=== PATIENT | male | born 1960 | race Caucasian/White ===

== ENCOUNTER → 2018-01-29 13:45 | Outpatient (POV) | payer OTHER, SELFPAY | PROVIDERS: Visit Provider Nurse Practitioner Acute Care | DX: Z00.00 Encounter for general adult medical examination without abnormal findings (principal) ==

== ENCOUNTER → 2018-01-31 08:27 | Outpatient (CLI) | payer OTHER, SELFPAY ==
[2018-01-31 08:49] LABS: Basophils % 0.6 % (0.1-2.0); Eosinophils # 0.3 K/mm3 (0.0-0.4); Eosinophils % 4.9 % (0.1-12.0); Hematocrit 48.4 % (42.0-52.0); Hemoglobin 17.1 g/dL (14.1-18.0); Lymphocytes # 1.9 K/mm3 (0.7-4.5); Lymphocytes % 31.6 K/mm3 (10-50); Mean Corpuscular HGB Conc 35.3 g/dL (31.8-35.4); Mean Corpuscular Volume 87.7 fl (80-94); Mean Platelet Volume 6.6 fl (7.4-10.4); Monocytes # 0.3 K/mm3 (0.1-1.0); Monocytes % 5.6 % (1.7-9.3); Neutrophils # 3.5 K/mm3 (1.8-7.8); Neutrophils % 57.4 % (37.0-80.0); Platelet Count 265 K/mm3 (142-424); Red Blood Count 5.52 M/mm3 (4.60-6.20); Red Cell Distribution Width 12.6 % (11.5-17.5); White Blood Count 6.1 K/mm3 (4.8-10.8)
[2018-01-31 09:09] LABS: Alanine Aminotransferase 56 U/L (12-78); Albumin Level 4.4 gm/dL (3.4-5.0); Albumin/Globulin Ratio 1.4 (1.1-1.8); Alkaline Phosphatase 61 U/L (46-116); Anion Gap 11.5 mEq/L (5-15); Aspartate Amino Transferase 30 U/L (15-37); Bilirubin,Total 0.9 mg/dL (0.2-1.0); Blood Urea Nitrogen 23 mg/dL (7-18); Calcium 9.4 mg/dL (8.5-10.1); Carbon Dioxide 29 mmol/L (21.0-32.0); Chloride 104 mmol/L (98-107); Chol/HDL Ratio 3.6 (1-3.5); Cholesterol 179 mg/dL (140-200); Creatinine,Serum 0.99 mg/dL (0.70-1.30); Estimated Glomerular Filt Rate 78 ml/min (>60); GFR (African American) 95 ML/MIN (>60); Globulin 3.1 gm/dl (1.3-3.2); Glucose 123 mg/dL (74-106); HDL Cholesterol 50 mg/dL (27-67); LDL Cholesterol 117 mg/dL (0-130); Potassium 4.5 mmoL/L (3.5-5.1); Sodium 140 mmol/L (136-145); Total Protein,Serum 7.5 gm/dL (6.4-8.2); Triglycerides 60 mg/dL (30-200); VLDL Cholesterol 12 mg/dL (0-40)
[2018-01-31 09:52] LABS: Hemoglobin A1C 6.3 % (0.0-7.0)
== END ==
PROVIDERS: Visit Provider Internal Medicine Gastroenterology
DX: R94.5 Abnormal results of liver function studies (principal)
CPT/HCPCS: 36415; 80053; 80061; 83036; 85025

== ENCOUNTER → 2018-12-27 18:21 | Outpatient (CLI) | payer BC, SELFPAY ==
--- NOTE | 2018-12-27 18:43 | XR_ITS ---
EXAM: XR cervical spine 5V HISTORY: ITS.REASON: CERVICALGIA, TRAPEZIUS MUSCLE SPASM ORDERING PHYSICIAN: Remedios Rincon PATIENT AGE: 58 years COMPARISON: None FINDINGS: There is minimal anterolisthesis of C4 on C5 of 3 mm. There is mild degenerative disc disease at C4-C5 C5-C6 and C6-C7. No fracture or dislocation. No lytic or blastic change. Facet hypertrophic changes are present from C3 to C7 greater on the right. There is mild right foraminal narrowing at C3 C4 and C5-C6. There is mild left foraminal narrowing at C4-C5. IMPRESSION: Cervical spondylosis with degenerative disc disease along with facet arthrosis and foraminal narrowing as described above
== END ==
PROVIDERS: PCP Nurse Practitioner Family; Visit Provider Nurse Practitioner Family
DX: M54.2 Cervicalgia (principal); G89.29 Other chronic pain; M62.838 Other muscle spasm
CPT/HCPCS: 72050

== ENCOUNTER → 2019-04-30 17:22 | Outpatient (CLI) | payer BC, SELFPAY ==
--- NOTE | 2019-04-30 17:59 | XR_ITS ---
XR chest 2V HISTORY: ITS.REASON: CHEST PRESSURE ORDERING PHYSICIAN: Gildardo Rutherford MD PATIENT AGE: 58 years COMPARISON: None FINDINGS: The cardiomediastinal silhouette and pulmonary vascularity are within normal limits. The lungs are clear without infiltrates, suspicious nodules, or pleural effusions. No acute bony abnormalities. IMPRESSION: Negative chest, no acute finding
[2019-04-30 19:16] LABS: Basophils # 0.1 K/mm3 (0-0.2); Basophils % 0.7 % (0.1-2.0); Eosinophils # 0.1 K/mm3 (0.0-0.4); Eosinophils % 1.5 % (0.1-12.0); Hemoglobin 15.6 g/dL (14.1-18.0); Lymphocytes # 3.1 K/mm3 (0.7-4.5); Lymphocytes % 34.1 % (10-50); Mean Corpuscular HGB Conc 33.3 g/dL (31.8-35.4); Mean Corpuscular Hemoglobin 29.2 pg (27.0-31.2); Mean Corpuscular Volume 87.7 fl (80-94); Mean Platelet Volume 6.9 fl (7.4-10.4); Monocytes # 0.5 K/mm3 (0.1-1.0); Neutrophils # 5.3 K/mm3 (1.8-7.8); Neutrophils % 58.7 % (37.0-80.0); Platelet Count 314 K/mm3 (142-424); Red Blood Count 5.36 M/mm3 (4.60-6.20); Red Cell Distribution Width 13.3 % (11.5-17.5)
[2019-04-30 19:57] LABS: Alanine Aminotransferase 125 U/L (12-78); Albumin Level 4.1 gm/dL (3.4-5.0); Albumin/Globulin Ratio 1.5 (1.1-1.8); Alkaline Phosphatase 108 U/L (46-116); Anion Gap 14.9 mEq/L (5-15); Aspartate Amino Transferase 39 U/L (15-37); Bilirubin,Total 0.7 mg/dL (0.2-1.0); Blood Urea Nitrogen 23 mg/dL (7-18); CKMB Relative Index 1.3 U/L (0-4.0); Calcium 9.1 mg/dL (8.5-10.1); Carbon Dioxide 27 mmol/L (21.0-32.0); Chloride 103 mmol/L (98-107); Creatine Kinase 149 U/L (39-308); Creatinine,Serum 1.02 mg/dL (0.70-1.30); Estimated Glomerular Filt Rate 76 ml/min (>60); GFR (African American) 91 ML/MIN (>60); Globulin 2.8 gm/dl (1.3-3.2); Glucose 218 mg/dL (74-106); Magnesium 2.2 mg/dL (1.4-2.2); Potassium 3.9 mmoL/L (3.5-5.1); Sodium 141 mmol/L (136-145); Total Protein,Serum 6.9 gm/dL (6.4-8.2); Troponin I < 0.02 ng/ml (0.00-0.06)
[2019-04-30 20:07] LABS: Hemoglobin A1C 7.5 % (0.0-7.0)
== END ==
PROVIDERS: Visit Provider Internal Medicine Adolescent Medicine
DX: R07.89 Other chest pain (principal); E11.9 Type 2 diabetes mellitus without complications; Z79.84 Long term (current) use of oral hypoglycemic drugs; R06.09 Other forms of dyspnea
CPT/HCPCS: 36415; 71046; 80053; 82550; 82553; 83036; 83735; 84484; 85025; 93005

== ENCOUNTER → 2019-05-08 11:33 | Outpatient (CLI) | payer BC, SELFPAY ==
--- NOTE | 2019-05-08 11:41 | NM_ITS ---
CARDIOLITE SPECT MYOCARDIAL PERFUSION LEXISCAN, REST AND STRESS: History: Diabetes, hyperlipidemia, family history, shortness of breath. Procedure: Patient exercised on Simone protocol 8 minutes and 30 seconds, resting heart rate was 56 beats prominent resting blood pressure 126/81, with exercise maximum heart rate achieved was 1 47 bpm which is equal to 90% of the maximum predicted heart rate and a blood pressure was 148/80. Test was started due to shortness of breath. Patient has good exercise capacity achieved 10.1mets of workload on treadmill, the blood pressure response to exercise was adequate. Electrocardiogram: Resting electrocardiogram showed sinus rhythm right bundle branch block, with exercise there is less than 1.[address] segment depression noted from the baseline. The EKG portion of the exercise Myoview is negative for ischemia. Cardiac stress and resting SPECT images: Cardiac stress and resting SPECT images were obtained using technetium 99 Myoview 31.5 mCi at stress and 10.1 mCi at rest. Gated SPECT further analysis of segmental wall motion and calculation of the ejection fraction also done. Cardiac stress and resting SPECT images show uniform myocardial activity without segmental perfusion abnormality, computer derived ejection fraction is 63% with no regional wall motion abnormality, right ventricle is normal size and contractility. Conclusion: 1. The EKG portion of the exercise Myoview is negative for ischemia, patient has good exercise capacity achieved 10.1mets of workload on treadmill, the blood pressure response to exercise was adequate, test was started shortness of breath. 2. No scintigraphic evidence of reversible ischemia seen at this level of exercise, computer derived ejection fraction is 63% with no regional wall motion abnormality, right ventricle is normal size and contractility. 3. Normal exercise Myoview study.
--- NOTE | 2019-05-08 13:35 | HMH.ITSHM ---
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 []janumet levocetirizine fomotidine rasuvastatin maloxicam proglitozone zyrtec vit e aspirin
== END ==
PROVIDERS: PCP Internal Medicine Adolescent Medicine; Visit Provider Internal Medicine Adolescent Medicine
DX: R07.89 Other chest pain (principal); R06.09 Other forms of dyspnea
CPT/HCPCS: 78452; 93017; A9502

== ENCOUNTER → 2019-05-13 09:56 | Outpatient (POV) | payer BC, SELFPAY ==
[2019-05-13 10:01] VITALS: BP 131/88; PULSE 71; RESP 18; O2SAT 98; BMI 26.9
--- NOTE | 2019-05-13 10:28 | HMH.PMCON ---
Assessment and Plan (1) Cervical neck pain with evidence of disc disease Current visit: Yes Status: Acute Category: Medical Code(s): M50.90 - Cervical disc disorder, unspecified, unspecified cervical region - Assessment and plan all Dx Assessment and Plan for all problems:: The patient is doing well with dry needling. He would like to continue this therapy at this time. Patient would like to call the office if he begins to have worsening pain and dry needling is not working for him. He has been instructed to call the office if he has any concerns. He will also continue a home stretching program, along with NSAIDs. Dr. Thayer has reviewed this note and agrees with this plan of care. This note was dictated using voice recognition software and make contain errors or omissions. HPI - Data of Consult Patient: new to practice Consult date: 05/13/19 Requesting Physician: Cris Antonio APRN Primary Care Provider: Gildardo Rutherford MD - Consult Narrative Reason for consult: Neck pain History of present illness: Mr. Sue is a 58 year old male who presents today for referral from Dr. Arora. Patient complains of neck pain radiating to head and right shoulder. He states that the pain presented in December of this year, with an acute onset. He says that he woke one morning with a stiff neck, and it has never gone away . He rates his pain a 3 out of 10 today. The patient tried anti-inflammatories that was prescribed per Dr. Rutherford, which gave him some relief. He was then consulted to Dr. Arora who sent him for PT OT. He says that he has started doing dry needling and has had 2 sessions. He has had great relief from dry needling. He would like to continue this therapy, with the possibility of epidural injections in the future if dry needling no longer works. She is also continuing home stretching program and NSAIDs prescribed per Dr. Rutherford CC: Cris Antonio APRN [facility] History I have reviewed the patient's past medical history: Yes Medical History: Reports:: Diabetes Mellitus Type 2 Denies:: Diabetes Mellitus Type 1, Internal Pacemaker, Lung Disease, Seizures *Have you ever received a pneumonia vaccine?: No *Have you received a flu vaccine this season?: No Laterality Cases: Bilateral: Total Knee Replacement Other Surgeries: Yes: Appendectomy, Colonoscopy. No: Pacemaker Amputation: No Fractures: No - *Social History Smoking Status: Never smoker Alcohol Intake: never *Occupational Status:: other Housing: house *Travel in the last 8 weeks: None Family Hx:: Non-contributory Review of Systems - Review of Systems Review of Systems General: No recent weight changes, no fever, no sleep disturbances Respiratory: No cough, no shortness of air, no recurring pulmonary infections Cardiovascular/peripheral vascular: No chest pain, no palpitations, no edema, no shortness of breath Gastrointestinal: No new onset incontinence, normal bowel movements reported Genitourinary: No new onset incontinence Musculoskeletal: Neck pain, right shoulder pain Psychiatric: Normal mood/affect Neurological: [Denies weakness in extremities], [denies balance issues] Meds Home Medications Medication Instructions Recorded Confirmed Type Aspirin [Aspir 81] 81 mg PO DAILY 04/13/18 04/16/18 History Famotidine [Acid Controller] 20 mg PO DAILY 04/13/18 04/16/18 History Sitagliptin Phos/Metformin HCl 1 each PO DAILY 04/13/18 04/16/18 History [Janumet 50-1,000 mg Tablet] Meloxicam 7.5 mg PO DAILY 05/13/19 05/13/19 History Pioglitazone HCl 45 mg PO DAILY 05/13/19 05/13/19 History Allergies Allergy/AdvReac Type Severity Reaction Status Date / Time codeine AdvReac Intermediate Nausea Verified 05/08/19 13:35 Objective Vital signs: Pulse Resp BP Pulse Ox 71 18 131/88 98 05/13/19 10:01 05/13/19 10:01 05/13/19 10:01 05/13/19 10:01 Narrative: Physical exam General: Alert and oriented x3, n
--- NOTE | 2019-05-13 10:31 | P.CONS_ITS ---
Assessment and Plan (1) Cervical neck pain with evidence of disc disease Current visit: Yes Status: Acute Category: Medical Code(s): M50.90 - Cervical disc disorder, unspecified, unspecified cervical region - Assessment and plan all Dx Assessment and Plan for all problems:: The patient is doing well with dry needling. He would like to continue this therapy at this time. Patient would like to call the office if he begins to have worsening pain and dry needling is not working for him. He has been instructed to call the office if he has any concerns. He will also continue a home stretching program, along with NSAIDs. Dr. Thayer has reviewed this note and agrees with this plan of care. This note was dictated using voice recognition software and make contain errors or omissions. HPI - Data of Consult Patient: new to practice Consult date: 05/13/19 Requesting Physician: Cris Antonio APRN Primary Care Provider: Gildardo Rutherford MD - Consult Narrative Reason for consult: Neck pain History of present illness: Mr. Sue is a 58 year old male who presents today for referral from Dr. Arora. Patient complains of neck pain radiating to head and right shoulder. He states that the pain presented in December of this year, with an acute onset. He says that he woke one morning with a stiff neck, and it has never gone away . He rates his pain a 3 out of 10 today. The patient tried anti- inflammatories that was prescribed per Dr. Rutherford, which gave him some relief. He was then consulted to Dr. Arora who sent him for PT OT. He says that he has started doing dry needling and has had 2 sessions. He has had great relief from dry needling. He would like to continue this therapy, with the possibility of epidural injections in the future if dry needling no longer works. She is also continuing home stretching program and NSAIDs prescribed per Dr. Rutherford CC: Cris Antonio APRN [facility] History I have reviewed the patient's past medical history: Yes Medical History: Reports:: Diabetes Mellitus Type 2 Denies:: Diabetes Mellitus Type 1, Internal Pacemaker, Lung Disease, Seizures *Have you ever received a pneumonia vaccine?: No *Have you received a flu vaccine this season?: No Laterality Cases: Bilateral: Total Knee Replacement Other Surgeries: Yes: Appendectomy, Colonoscopy. No: Pacemaker Amputation: No Fractures: No - *Social History Smoking Status: Never smoker Alcohol Intake: never *Occupational Status:: other Housing: house *Travel in the last 8 weeks: None Family Hx:: Non-contributory Review of Systems - Review of Systems Review of Systems General: No recent weight changes, no fever, no sleep disturbances Respiratory: No cough, no shortness of air, no recurring pulmonary infections Cardiovascular/peripheral vascular: No chest pain, no palpitations, no edema, no shortness of breath Gastrointestinal: No new onset incontinence, normal bowel movements reported Genitourinary: No new onset incontinence Musculoskeletal: Neck pain, right shoulder pain Psychiatric: Normal mood/affect Neurological: [Denies weakness in extremities], [denies balance issues] Meds Home Medications Medication Instructions Recorded Confirmed Type Aspirin [Aspir 81] 81 mg PO DAILY 04/13/18 04/16/18 History Famotidine [Acid Controller] 20 mg PO DAILY 04/13/18 04/16/18 History Sitagliptin Phos/Metformin HCl 1 each PO DAILY 04/13/18 04/16/18 History [Janumet 50-1,000 mg Tablet] Meloxica
== END ==
PROVIDERS: PCP Internal Medicine Adolescent Medicine; Visit Provider Clinical Nurse Specialist Family Health
DX: M50.30 Other cervical disc degeneration, unspecified cervical region (principal)
CPT/HCPCS: 99202

== ENCOUNTER 2019-05-29 17:00 | Outpatient (RCR) | payer BC, SELFPAY | END 2019-06-05 10:54 | disposition home or self-care (01) | LOC: PT.CARL 17:00 | PROVIDERS: Visit Provider Neurological Surgery | DX: M54.2 Cervicalgia (principal) | CPT/HCPCS: 97010; 97012; 97014; 97035; 97110; 97140; 97163; G0283 ==

== ENCOUNTER → 2020-09-21 17:07 | Outpatient (CLI) | payer BC, SELFPAY ==
[2020-09-23 10:48] LABS: PSA, Free 1.37 ng/mL; Prostate Specific Ag 6.5 ng/mL (0.0-4.0)
== END ==
PROVIDERS: Visit Provider Urology
DX: R97.20 Elevated prostate specific antigen [PSA] (principal)
CPT/HCPCS: 36415; 84153; 84154

== ENCOUNTER → 2021-02-06 15:42 | Outpatient (CLI) | payer BC, SELFPAY ==
--- NOTE | 2021-02-06 15:57 | XR_ITS ---
PROCEDURE: XR SHOULDER RT MIN 2V CLINICAL INDICATION: RIGHT ANTERIOR SHOULDER PAIN COMPARISON: No exams were available for comparison FINDINGS: The clavicle is intact. There is minor degenerate change of the AC joint with minor spurring superiorly and inferiorly. There is no subacromial stenosis. There is node change in the subacromial space on the images obtained with weights versus without weights. The humeral head and glenoid appear normal. There no soft tissue calcifications. IMPRESSION: Mild degenerate change of the AC joint, no acute fracture or soft tissue abnormality noted Dictated by: Dr. Juan José Keating MD 02/06/2021 18:55 Dr. Juan José Keating MD in [place] 02/06/2021 18:55
== END ==
PROVIDERS: PCP Internal Medicine Adolescent Medicine; Visit Provider Internal Medicine Adolescent Medicine
DX: M25.511 Pain in right shoulder (principal)
CPT/HCPCS: 73030

== ENCOUNTER 2021-03-18 11:52 | Outpatient (CLI) | payer BC, SELFPAY ==
[2021-03-18] VITALS (8 sets, daily range): BP systolic 103–110; BP diastolic 63–77; PULSE 79–89; RESP 15–20; TEMP 37.2–37.3; O2SAT 93–96
== END 2021-03-18 14:56 | disposition home or self-care (01) ==
PROVIDERS: PCP Internal Medicine Adolescent Medicine; Visit Provider Internal Medicine Adolescent Medicine
DX: U07.1 COVID-19 (principal)
CPT/HCPCS: 96365

== ENCOUNTER → 2021-10-03 14:30 | Outpatient (CLI) | payer BC, SELFPAY ==
[2021-10-05 11:12] LABS: Prostate Specific Ag 17.3 ng/mL (0.0-4.0)
== END ==
PROVIDERS: PCP Internal Medicine Adolescent Medicine; Visit Provider Urology
DX: R97.20 Elevated prostate specific antigen [PSA] (principal)
CPT/HCPCS: 36415; 84153; 84154

== ENCOUNTER → 2021-11-16 09:51 | Outpatient (CLI) | payer BC, SELFPAY ==
[2021-11-17 08:37] LABS: PSA, Free 3.79 ng/mL; Prostate Specific Ag 20.9 ng/mL (0.0-4.0)
== END ==
PROVIDERS: Visit Provider Urology
DX: R97.20 Elevated prostate specific antigen [PSA] (principal)
CPT/HCPCS: 36415; 84153; 84154

== ENCOUNTER → 2021-11-27 14:13 | Outpatient (CLI) | payer BC, SELFPAY ==
[2021-11-27 15:14] LABS: MANUAL DIFFERENTIAL MANUAL DIFFERENTIAL (MANUAL DIFF)
[2021-11-27 15:28] LABS: Basophils # 0.2 K/mm3 (0-0.2); Eosinophils # 0.2 K/mm3 (0.0-0.4); Eosinophils % 2.7 % (0.1-12.0); Hematocrit 49.3 % (42.0-52.0); Hemoglobin 16.3 g/dL (14.1-18.0); Lymphocytes # 3.1 K/mm3 (0.7-4.5); Lymphocytes % 41.8 % (10-50); Mean Corpuscular HGB Conc 33.1 g/dL (31.8-35.4); Mean Corpuscular Hemoglobin 30.6 pg (27.0-31.2); Mean Corpuscular Volume 92.4 fl (80-94); Mean Platelet Volume 7.5 fl (7.4-10.4); Monocytes # 0.3 K/mm3 (0.1-1.0); Monocytes % 4.3 % (1.7-9.3); Neutrophils # 3.6 K/mm3 (1.8-7.8); Neutrophils % 49.2 % (37.0-80.0); Platelet Count 237 K/mm3 (142-424); Red Blood Count 5.33 M/mm3 (4.60-6.20); Red Cell Distribution Width 13.8 % (11.5-17.5); White Blood Count 7.4 K/mm3 (4.8-10.8)
[2021-11-27 15:32] LABS: Chloride 106 mmol/L (98-107); Potassium 3.9 mmoL/L (3.5-5.1); Sodium 143 mmol/L (136-145)
[2021-11-27 15:35] LABS: Anion Gap 14.9 mEq/L (5-15); Blood Urea Nitrogen 23 mg/dl (9-20); Calcium 9.9 mg/dl (8.4-10.2); Carbon Dioxide 26 mmol/L (22.0-30.0); Estimated Glomerular Filt Rate 76 ml/min (>60); GFR (African American) 93 ML/MIN (>60); Glucose 190 mg/dl (74-100)
[2021-11-27 17:39] LABS: Eosinophils % 2 % (0-3); Lymphocytes % 44 % (10-50); Monocytes % 12 % (2-9); Neutrophils % 40 % (42-76); Platelet Estimate Normal; Total Cells Counted 100
== END ==
PROVIDERS: PCP Internal Medicine Adolescent Medicine; Visit Provider Urology
DX: Z01.812 Encounter for preprocedural laboratory examination (principal); Z11.52 Encounter for screening for COVID-19; R97.20 Elevated prostate specific antigen [PSA]
CPT/HCPCS: 36415; 80048; 85007; 85014; 85018; 85048; 85049; C9803; U0003; U0005

== ENCOUNTER 2021-11-29 06:54 | Day surgery (SDC) | payer BC, SELFPAY ==
[2021-11-25 10:59] VITALS: BMI 26.2
[2021-11-29 07:17] VITALS: BP 140/89; PULSE 105; RESP 18; TEMP 37; O2SAT 96
--- NOTE | 2021-11-29 09:18 | P.PN_ITS ---
[facility] Anesthesia Checklist - Patient Identification Patient Identification: Arm Band - Structural Data Admitted From: Home Planned Operative Procedure/s: Prostate Biopsy Consent for Planned Operative Procedure(s) Verified: Yes Verified Documents: Surgical Consent, History and Physical - NPO Status Verified Time NPO: 00:00 - Additional verifications Anesthesia Reactions: No Hx Blood Transfusions: No Blood Transfusion Reaction: No - Airway Assessment C-Spine Mobility Assessed: Yes (mp2) TMJ Mobility Assessed: Yes Dentition: Good Dentition - Neurological Assessment Level of Consciousness: Awake, Alert - Anesthesia Plan Anesthesia Risk discussed: Yes Anesthesia Plan: Verified ASA Class: III Anesthesia Type: MAC [facility] History I have reviewed the patient's past medical history: Yes Medical History: Reports:: BPH, Diabetes Mellitus Type 2, Seizures Denies:: Cancer, Diabetes Mellitus Type 1, Internal Pacemaker, Lung Disease, MRSA *Have you ever received a pneumonia vaccine?: No *Have you received a flu vaccine this season?: Yes Other Medical History: Denies: Blood Transfusion Reaction Anesthesia experience/problems:: nac Laterality Cases: Bilateral: Arthroscopy Knee, Total Knee Replacement Other Surgeries: Yes: Appendectomy, Colonoscopy. No: Pacemaker Amputation: No Fractures: No - *Social History Last grade of school completed: GED Smoking Status: Never smoker Alcohol Intake: never Substance Use Type: denies use *Occupational Status:: employed Housing: house Household Members: spouse *Travel in the last 8 weeks: None Family Hx:: No significant family history
[2021-11-29 09:33] VITALS: BP 85/50; PULSE 75; RESP 16; TEMP 36.2; O2SAT 93
[2021-11-29 10:03] VITALS: BP 87/55; PULSE 72; RESP 16; TEMP 36.2; O2SAT 97
[2021-11-29 10:15] VITALS: BP 113/70; PULSE 78; RESP 18; O2SAT 96
[2021-11-29 10:16] VITALS: BP 83/51; PULSE 74; RESP 18; TEMP 36.2; O2SAT 93
--- NOTE | 2021-11-29 12:10 | HMH.OPNOTE ---
Date of procedure: 11/29/21 Pre-op Diagnosis:: Elevated PSA Post-op Diagnosis:: Elevated PSA Procedure performed:: Prostate biopsy with transrectal ultrasound Surgeon:: Jan Ledezma MD DIVISION ORDER ANALYST:: Michael Crowe Anesthesia: MAC Estimated blood loss (mL): 0 Clinical Note:: 61-year-old white male with recent PSA of 20. He presents for his first prostate biopsy. Operative findings:: Prostate was measured at 37.9 cm?. There was no evidence of hypoechoic or hyperechoic lesions or calcifications. Operative note:: Patient taken to the operating suite after informed consent was obtained. Monitored anesthesia care was administered and patient placed into the left lateral decubitus position. Transrectal ultrasound probe was placed into the rectum without difficulty and the prostate was easily visualized. The prostate was measured at 37.9 cm?. There is no evidence of hypoechoic or hyperechoic lesions. No calcifications were noted. Local anesthetic was placed into each neurovascular bundle and 12 biopsies were then taken in a systematic fashion. The ultrasound probe removed. The patient tolerated the procedure well there were no complications Condition: stable Disposition: same day Specimens:: Prostate biopsies x12 Complications:: None
[2022-08-11 10:56] LABS: POC Glucose,Bedside 198 (70-110)
== END 2021-11-29 10:15 ==
LOC: OR 06:54
PROVIDERS: PCP Internal Medicine Adolescent Medicine; Visit Provider Urology
PROC: (CPT 55700; principal; 2021-11-29 09:00)
DX: C61 Malignant neoplasm of prostate (principal); E11.9 Type 2 diabetes mellitus without complications; R56.9 Unspecified convulsions; Z88.6 Allergy status to analgesic agent; Z79.82 Long term (current) use of aspirin; Z79.899 Other long term (current) drug therapy
CPT/HCPCS: 55700; 82962

== ENCOUNTER → 2021-12-06 07:36 | Outpatient (CLI) | payer BC, SELFPAY ==
--- NOTE | 2021-12-06 07:36 | CT_ITS ---
FINAL REPORT TECHNIQUE: Axial images through the abdomen and pelvis were performed without intravenous contrast. Oral contrast was administered. This study was performed with techniques to keep radiation doses as low as reasonably achievable, (ALARA). Individualized dose reduction techniques using automated exposure control or adjustment of mA and/or kV according to the patient's size were employed. CLINICAL HISTORY: prostate cancer- dx last week. FINDINGS: ABDOMEN: The lung bases are clear. The heart size is normal. Limited images of the liver are unremarkable. There are gallstones seen in the gallbladder. The spleen is normal. No adrenal mass is identified. The aorta is normal in caliber. There is no significant free fluid or adenopathy. There is no nephrolithiasis. There is no hydronephrosis. There is a large amount of stool throughout the colon. PELVIS: The appendix is not identified and appears to be surgically absent. The urinary bladder is unremarkable. There is no significant free fluid or adenopathy. There are advanced hypertrophic changes of degenerative disc disease in the lower lumbar spine. IMPRESSION: Cholelithiasis without evidence of cholecystitis. Constipation without evidence of obstruction. Reviewed, Interpreted and Dictated by Moiz Hodges MD Transcribed by Tiffanie Wood Authenticated by Moiz Hodges MD on 12/06/2021 09:57:47 AM [facility]
== END ==
PROVIDERS: PCP Internal Medicine Adolescent Medicine; Visit Provider Urology
DX: C61 Malignant neoplasm of prostate (principal)
CPT/HCPCS: 74176

== ENCOUNTER → 2021-12-10 08:43 | Outpatient (CLI) | payer BC, SELFPAY ==
--- NOTE | 2021-12-10 08:43 | NM_ITS ---
FINAL REPORT CLINICAL HISTORY: prostate cancer..no pain 8:50 am 26.7 mci tc MDP injected into lt ant FINDINGS: EXISTING RELEVANT IMAGING STUDIES: CT abdomen and pelvis dated December 06, 2021 TECHNIQUE: The patient was injected with 26.7 mCi of technetium 99-[id number]. 3 hour delayed images were obtained. FINDINGS: There is normal distribution of the radiopharmaceutical. No abnormal tracer activity is identified to suggest occult fracture or metastatic disease. IMPRESSION: No findings to indicate metastatic bone disease. Reviewed, Interpreted and Dictated by Moiz Hodges MD Transcribed by Kavon Matute Authenticated by Moiz Hodges MD on 12/10/2021 02:50:57 PM [facility]
== END ==
LOC: RAD 08:43
PROVIDERS: PCP Internal Medicine Adolescent Medicine; Visit Provider Urology
DX: C61 Malignant neoplasm of prostate (principal)
CPT/HCPCS: 78306; A9503

== ENCOUNTER → 2022-01-21 09:00 | Outpatient (CLI) | payer BC, SELFPAY | PROVIDERS: Visit Provider Urology | DX: Z01.812 Encounter for preprocedural laboratory examination (principal); Z11.52 Encounter for screening for COVID-19; C61 Malignant neoplasm of prostate | CPT/HCPCS: C9803; U0003; U0005 ==

== ENCOUNTER 2022-01-24 07:31 | Day surgery (SDC) | payer BC, SELFPAY ==
[2022-01-20 09:53] VITALS: BMI 27.5
--- NOTE | 2022-01-24 08:03 | P.PN_ITS ---
[facility] Anesthesia Checklist - Patient Identification Patient Identification: Arm Band - Structural Data Admitted From: Home Planned Operative Procedure/s: Transrectal U/S with gold seed placement Consent for Planned Operative Procedure(s) Verified: Yes - NPO Status Verified Time NPO: 00:00 - Additional verifications Anesthesia Reactions: No Hx Blood Transfusions: No Blood Transfusion Reaction: No - Airway Assessment C-Spine Mobility Assessed: Yes TMJ Mobility Assessed: Yes Dentition: Good Dentition - Neurological Assessment Level of Consciousness: Awake Hx Seizures: No Numbness or tingling in extremities: No - Anesthesia Plan Anesthesia Risk discussed: Yes Anesthesia Plan: Verified ASA Class: II Anesthesia Type: MAC [facility] History I have reviewed the patient's past medical history: Yes Medical History: Reports:: BPH, Cancer (prostate), Diabetes Mellitus Type 2, Seizures Denies:: Diabetes Mellitus Type 1, Internal Pacemaker, Lung Disease, MRSA *Have you ever received a pneumonia vaccine?: No *Have you received a flu vaccine this season?: Yes Other Medical History: Reports: Chemotherapy, Radiation Therapy. Denies: Blood Transfusion Reaction Anesthesia experience/problems:: None Laterality Cases: Bilateral: Arthroscopy Knee, Total Knee Replacement Other Surgeries: Yes: No Previous Surgery, Appendectomy, Cancer Surgery, Colonoscopy. No: Pacemaker Amputation: No Fractures: No - *Social History Last grade of school completed: High school graduate Smoking Status: Never smoker Alcohol Intake: never Substance Use Type: denies use *Occupational Status:: employed Housing: house Household Members: spouse *Travel in the last 8 weeks: None Family Hx:: No significant family history
[2022-01-24 09:07] VITALS: BP 139/90; PULSE 95; RESP 18; TEMP 37; O2SAT 100
[2022-01-24 11:08] VITALS: BP 104/70; PULSE 78; RESP 18; TEMP 36.3; O2SAT 91
[2022-01-24 11:18] VITALS: BP 111/74; PULSE 78; RESP 18; O2SAT 93
--- NOTE | 2022-01-24 11:19 | HMH.OPNOTE ---
Date of procedure: 01/24/22 Pre-op Diagnosis:: Prostate cancer Post-op Diagnosis:: Prostate cancer Procedure performed:: Placement of gold fiducial markers with transrectal ultrasound guidance Surgeon:: Jan Ledezma MD SALES AND MERCHANDISING REPRESENTATIVE:: Leana Cast Anesthesia: MAC Estimated blood loss (mL): 0 Clinical Note:: 61-year-old white male with recently diagnosed high-grade prostate cancer presents for placement of gold fiducial markers into the prostate for radiation therapy of the prostate. Operative findings:: Prostate easily visualized and markers placed without difficulty. Operative note:: Patient taken to the operating suite on the stretcher. Monitored anesthesia care was administered. He was placed into the left lateral decubitus position and the transrectal ultrasound probe placed into the rectum. The prostate was easily visualized and had been measured during previous biopsy. Local anesthetic was placed into each neurovascular bundle and 4 markers were then placed. One at the right lateral base, 1 at the right lateral apex, 1 at the left lateral base and one at the left lateral apex. There was good visualization of the markers after placement. The probe removed. The patient tolerated procedure well. Condition: stable Disposition: same day Specimens:: None Complications:: None
[2022-01-24 11:28] VITALS: BP 121/66; PULSE 85; RESP 18; O2SAT 95
[2022-01-24 11:37] VITALS: BP 146/84; PULSE 74; RESP 18; O2SAT 97
[2022-08-11 10:57] LABS: POC Glucose,Bedside 211 (70-110)
== END 2022-01-24 11:40 | disposition home or self-care (01) ==
LOC: OUTP 07:33
PROVIDERS: PCP Internal Medicine Adolescent Medicine; Visit Provider Urology
PROC: (CPT 55876; principal; 2022-01-24 09:30)
DX: C61 Malignant neoplasm of prostate (principal); E11.9 Type 2 diabetes mellitus without complications; Z88.6 Allergy status to analgesic agent; Z79.82 Long term (current) use of aspirin; Z79.899 Other long term (current) drug therapy
CPT/HCPCS: 55876; 76942; A4648; 82962

== ENCOUNTER → 2022-07-12 10:35 | Outpatient (CLI) | payer BC, SELFPAY ==
[2022-07-12 13:07] LABS: Prostate Specific Ag, Diagnost 0.105 ng/ml (0.0-4.0)
== END ==
PROVIDERS: PCP Internal Medicine Adolescent Medicine; Visit Provider Urology
DX: C61 Malignant neoplasm of prostate (principal)
CPT/HCPCS: 36415; 84153

== ENCOUNTER → 2023-05-25 10:47 | Outpatient (CLI) | payer BC, SELFPAY ==
--- NOTE | 2023-05-25 | CA_ITS ---
APPROVED REPORT Exam: Exercise Treadmill Technologist: Chata Lott, Ht: 6 ft 3 in Wt: 210 lbs BSA: 2.24 m2 HR: 73 bpm BP: 133/85 mmHg Rhythm: NSR Medical History Medications: Aspirin,,,,, Cephalexin,,,,, Pioglitazone,,,,, MeLOXICAM,,,,, Famotidine,,,,, LoraTADINE,,,,, Janumet,,,,, Levofloxacin,,,,, Stress Test Details Test: Manual Treadmill HR Resting HR: 95 bpm Max Heart Rate (APMHR): 160 bpm Max HR Achieved: 139 bpm Target HR (85% APMHR): 136 bpm % of APMHR: 87 Recovery HR: 98 bpm HR response to stress: Normal HR response to stress BP Resting BP: 120.0/86 mmHg Max BP: 154/84 mmHg Recovery BP: 129.0/82.0 mmHg BP response to stress: Normal blood pressure response to stress. ECG Resting ECG: NSR, RBBB, marked left axis deviation, poor R wave progression Stress ECG: No change Arrhythmia: Occasional PVCs Recovery ECG: No change Recovery Arrhythmia: None Clinical Exercise duration: 07:00 min Highest Stage Achieved: III Exercise capacity: 9.0 METs Overall Exercise Capacity for Age: Average Stress ECG Conclusion THe patient walked 7:00 on Simone Protocol (speed decreased to 3mph the last 50 secs). He achieved a total of 9 METs, exhibiting average exercise capacity compared to age and sex matched peers. He has a normal HR and BP response to exercise. Max HR: 139 % of PM: 87% Max BP: 154/84 METs: 9.0 Test stopped due to: SOA, leg fatigue. Symptoms: No CP. Arrhythmias/Ectopy: Occ PVC. Baseline ECG showed normal sinus rhythm, right bundle branch block, left axis deviation, and delayed R/S transition. At peak stress, there were no ST changes. Conclusion: No evidence of ischemia on exercise stress test. Myoview images are reported separately. Test Summary REST . . . . . . . Sitting REST . . . . . . . Standing REST 03:33 0.0 0.0 95 . 120/ 86 . . Stage 1 01:00 10.0 1.7 102 . . . . Stage 1 02:00 10.0 1.7 105 . . . . Stage 1 03:00 10.0 1.7 110 . 146/ 80 . . Stage 2 01:00 12.0 2.5 117 . . . . Stage 2 02:00 12.0 2.5 124 . . . . Stage 2 03:00 12.0 2.5 129 . 154/ 84 . . Stage 3 . . . . . . . Protocol changed to Manual Treadmill Stage 3 01:00 14.0 3.0 138 . . . Stop exercise at 07:00 RECOVERY 01:00 0.0 0.0 127 . . . . RECOVERY 02:00 0.0 0.0 111 . . . . RECOVERY 03:00 0.0 0.0 105 . 129/ 88 . . RECOVERY 04:00 0.0 0.0 102 . 135/ 80 . . RECOVERY 05:00 0.0 0.0 100 . 129/ 82 . . RECOVERY 05:25 0.0 0.0 98 . 129/ 82 . . Electronically signed by : May Burnette, 05/28/2023 17:55:51
--- NOTE | 2023-05-25 10:53 | NM_ITS ---
APPROVED REPORT Exam: Nuclear Stress Test Indication: soa..fatigue Patient Location: Outpatient Stress Tech: Chata Gómez [place] Tech:DANIEL Albert RT(R)(N) Ht: 6 ft 3 in Wt: 210 lbs HR: 95 bpm BP: 120/86 mmHg BSA: 2.24 m2 Rhythm: NSR TID: 0.97 BMI: 26.2 History: soa..fatigue Procedure: Patient exercised on Simone protocol 7 minutes and sec, resting heart rate 95 bpm, resting blood pressure 120/86 mmHg, with exercise maximum heart rate achived was 139 bpm which is 87 % of the maximum predicted heart rate and blood pressure was 154/84 mmHg. Test was stopped due to fatigue. Patient denied any complaint of chest pain. Patient has average exercise capacity, achieved 9.0 METs of workload on treadmill, the blood pressure response to exercise was normal. Cardiac Stress and Resting SPECT Images: Cardiac Stress and Resting SPECT images were obtained using technetium 99m Myoview 29.8 mCi stress and 10.68 mCi at rest. Resting and stress imaging in both supine and prone positions demonstrate a small-sized, moderate, fixed perfusion defect that is localized at the LV apex. The perfusion defect at the apical LV wall appears to more prominent than physiologic apical thinning. Gated imaging demonstrates normal global and regional LV systolic function. The septum appears asynchronous. LVEF is calculated at 53% Conclusion: Small-sized, moderate, fixed perfusion defect that is localized at the LV apex. No evidence of reversible ischemia. Gated imaging demonstrates normal global and regional LV systolic function. The septum appears asynchronous. LVEF is calculated at 53%. When visually compared to prior nuclear stress test from 2019, these findings were previously present and appear unchanged. Electronically signed by : May Burnette, 05/28/2023 18:04:17
== END ==
PROVIDERS: PCP Internal Medicine Adolescent Medicine; Visit Provider Nurse Practitioner Family
DX: R07.89 Other chest pain (principal)
CPT/HCPCS: 78452; 93017; A9502